=== PATIENT | female | born 1975 ===

== ENCOUNTER 2020-11-20 12:15 | Inpatient (IN) | payer OTHER ==
[~2020-11-20] VITALS: Ht 152.4 cm; Wt 69.4 kg
[2020-11-20] MEDS ORDERED: ALTACE2.5 MG PO (14:29)
== END 2020-12-14 12:30 | disposition home or self-care (01) | DRG 743 ==
LOC: OB/GYN 11-21 12:15 → O/R 12-12 05:35 → OB/GYN 12-12 05:35
PROVIDERS: ADMIT Specialist; ATTEND Specialist
PROC: 0UT7FZZ Resection of Bilateral Fallopian Tubes, Via Natural or Artificial Opening With Percutaneous Endoscopic Assistance (ICD-10-PCS; 2020-12-12)
PROC: 0UT9FZZ Resection of Uterus, Via Natural or Artificial Opening With Percutaneous Endoscopic Assistance (ICD-10-PCS; principal; 2020-12-12 11:15)
DX: D25.1 Intramural leiomyoma of uterus (principal); N72 Inflammatory disease of cervix uteri; N84.0 Polyp of corpus uteri; N83.8 Other noninflammatory disorders of ovary, fallopian tube and broad ligament; I10 Essential (primary) hypertension; E03.9 Hypothyroidism, unspecified